=== PATIENT | female | born 1990 | race American Indian/Alaskan Native ===

== ENCOUNTER 2016-08-05 14:24 | Emergency (ER) | payer MEDICAID ==
[2016-08-05] MEDS ORDERED: TORADOL IM ONE (18:21)
[2016-08-05 20:01] VITALS: BP 118/60
--- NOTE | 2016-08-06 07:08 | XRay Report ---
Right ankle 3 views: History: Ankle pain/swelling. Findings: No bony or articular abnormality. No fracture or dislocation. Impression: Essentially negative right ankle.
--- NOTE | 2016-08-06 07:09 | XRay Report ---
Right foot 3 views: History: Foot pain. Findings: No acute abnormality. No fracture dislocation or periosteal reaction. No soft tissue calcification. Impression: Essentially negative right foot.
--- NOTE | 2016-08-12 19:41 | Emergency Department Report ---
Entered by TANVIR MONGE, acting as scribe for IVON GARY NP. ED Lower Extremity HPI - General Chief Complaint: Extremity Injury, Lower Stated Complaint: ANKLE AND FOOT PAIN Time Seen by Provider: 08/05/16 18:10 Source: patient Mode of arrival: Wheelchair Limitations: No Limitations - History of Present Illness Initial Comments: 26 y/o female with Hx of GERD and Migraines, presents with right foot pain and swelling that started 6 days ago and radiates up the leg. Pt is ambulatory and denies trauma to the area, falling, CAMARE[place], chills, SOB, chest pain, calf swelling, or abd pain. Medication includes ibuprofen with no relief. MD Complaint: foot injury (right) -: days(s) (6) Injury: Foot: Right (pain and swelling) Type of Injury: other (none) Place: home Severity: mild Severity scale (0 -10): 4 Improves With: nothing Worsens With: movement Context: other (woke up in pain/swelling) Associated Symptoms: swelling, able to partially bear weight, ambulatory. denies: snap/pop sensation, numbness, tingling, unable to bear weight - Related Data Previous Rx's Medication Instructions Recorded Last Taken Type Diclofenac Sodium 50 mg PO TID #20 tablet. 08/05/16 Unknown Rx Allergies Allergy/AdvReac Type Severity Reaction Status Date / Time No Known Allergies Allergy Unverified 08/05/16 15:11 ED Review of Systems Comment: All other systems reviewed and negative Constitutional: denies: chills, fever Cardiovascular: denies: chest pain Gastrointestinal: denies: abdominal pain, nausea, vomiting Musculoskeletal: other (swelling to the right foot) Skin: denies: rash Neurological: denies: headache, weakness, numbness ED Past Medical Hx - Past Medical History Hx GERD: Yes Hx Headaches / Migraines: Yes - Surgical History Hx Appendectomy: Yes - Social History Smoking Status: Current Every Day Smoker Substance Use Type: None - Medications Home Medications: Home Medications Medication Instructions Recorded Confirmed Last Taken Type Diclofenac Sodium 50 mg PO TID #20 tablet. 08/05/16 Unknown Rx ED Physical Exam - General Limitations: No Limitations General appearance: alert, in no apparent distress - Head Head exam: Present: atraumatic, normocephalic - Eye Eye exam: Present: normal appearance, PERRL, EOMI Pupils: Present: normal accommodation - ENT ENT exam: Present: normal exam, mucous membranes moist - Neck Neck exam: Present: normal inspection, full ROM. Absent: tenderness, meningismus, lymphadenopathy, thyromegaly - Respiratory Respiratory exam: Present: normal lung sounds bilaterally. Absent: respiratory distress, wheezes, rales, rhonchi, stridor - Cardiovascular Cardiovascular Exam: Present: regular rate, normal rhythm, normal heart sounds. Absent: systolic murmur, diastolic murmur, rubs, gallop - GI/Abdominal GI/Abdominal exam: Present: soft, normal bowel sounds. Absent: distended, tenderness, guarding, rebound, rigid - Extremities Exam Extremities exam: Present: normal inspection, full ROM, normal capillary refill. Absent: tenderness, pedal edema, joint swelling, calf tenderness - Expanded Lower Extremity Exam Right Hip exam: Present: normal inspection, full ROM. Absent: tenderness Upper Leg exam: Present: normal inspection, full ROM. Absent: tenderness Knee exam: Present: normal inspection, full ROM. Absent: tenderness Lower Leg exam: Present: normal inspection, full ROM. Absent: swelling Ankle exam: Present: swelling. Absent: tenderness, deformity Foot/Toe exam: Present: swelling. Absent: tenderness, deformity, erythema - Back Exam Back exam: Present: normal inspection, full ROM. Absent: tenderness, CVA tenderness (R), CVA tenderness (L), paraspinal tenderness, vertebral tenderness - Neurological Exam Neurological exam: Present: alert, oriented X3, CN II-XII intact, normal gait, reflexes normal. Absent: abnormal gait, motor sensory deficit - Psychiatric Psychiatric exam: Present: normal affect, normal mood - Skin Skin exam: Present: warm, dry, intact, normal color. Absent: rash ED Course Vital Signs 08/05/16 08/05/16 15:08 19:59 Temperature 98.6 F Pulse Rate 72 63 Respiratory 18 20 Rate Blood Pressure 126/103 Blood Pressure 118/60 [Left] O2 Sat by Pulse 100 99 Oximetry ED Lower Extremity MDM - Lab Data Vital Signs 08/05/16 08/05/16 15:08 19:59 Temperature 98.6 F Pulse Rate 72 63 Respiratory 18 20 Rate Blood Pressure 126/103 Blood Pressure 118/60 [Left] O2 Sat by Pulse 100 99 Oximetry - Radiology Data Radiology results: pending, report reviewed, image reviewed No acute abnormalities or fractures Right foot 3 views: History: Foot pain. Findings: No acute abnormality. No fracture dislocation or periosteal reaction. No soft tissue calcification. Impression: Essentially negative right foot. Right ankle 3 views: History: Ankle pain/swelling. Findings: No bony or articular abnormality. No fracture or dislocation. Impression: Essentially negative right ankle. - Medical Decision Making During the course of ED, pain medication, laboratory and radiology ordered. The imaging studies were unremarkable for acute abnormalities. Patient was sent home with a prescription for Diclofenac Sodium, instructed to follow up with the selective referral given at discharge, she verbalized understanding. - Differential Diagnosis Right Lower Extremity Pain, Arthritis ED Disposition Clinical Impression: Right foot pain, Acute right ankle pain Disposition: DC- TO HOME OR SELFCARE Is pt being admited?: No Does the pt Need Aspirin: No Condition: Stable Instructions: Arthralgia (ED) Additional Instructions: Take medication as directed. Follow up with the selective referral given at discharge Prescriptions: Diclofenac Sodium 50 mg PO TID #20 tablet. Referrals: HEAVEN BABIN MD [Staff Physician] - 3-5 Days Forms: Work/School Release Form(ED) Time of Disposition: 19:42 This documentation as recorded by the SALEEM ayala RYAN,accurately reflects the service I personally performed and the decisions made by ,IVON GARY NP.
== END 2016-08-05 20:05 | disposition home or self-care (01) ==
LOC: ED 14:24
DX: M25.571 Pain in right ankle and joints of right foot (principal); K21.9 Gastro-esophageal reflux disease without esophagitis; G40.909 Epilepsy, unspecified, not intractable, without status epilepticus; F17.200 Nicotine dependence, unspecified, uncomplicated; Z90.49 Acquired absence of other specified parts of digestive tract
CPT/HCPCS: 36415; 73600; 73620; 81025; 84550; 96372; 99284; J1885